=== PATIENT | male | born 1980 | race Caucasian/White ===

== ENCOUNTER 2018-02-25 10:24 | Day surgery (SDC) | payer OTHER ==
[2018-02-17 13:57] VITALS: BMI 26.5
[2018-02-25] MEDS ORDERED: EPINEPHrine 1:1,000 1 MG/1 ML - 30ML VIAL (INJECTION) ONE (10:29)
[2018-02-25] MEDS ORDERED: MIDAZOLAM HCL 2 MG/2 ML SINGLE DOSE VIAL ONE (11:01)
[2018-02-25] MEDS ORDERED: PROPOFOL 20 ML ONE ×2 (11:01)
[2018-02-25] MEDS ORDERED: BUPIVACAINE HCL 0.25% 125 MG/50 ML VIAL ONE (11:34)
[2018-02-25] MEDS ORDERED: ONDANSETRON 4 MG/2 ML VIAL ONE (11:36)
[2018-02-25] MEDS ORDERED: ceFAZolin SODIUM 1 GM VIAL ONE (11:36)
[2018-02-25] MEDS ORDERED: DEXAMETHASONE SOD PHOSPHATE 4 MG/1 ML VIAL ONE (11:36)
[2018-02-25] MEDS ORDERED: KETOROLAC TROMETHAMINE 30 MG/1 ML VIAL ONE (11:36)
[2018-02-25] MEDS ORDERED: LIDOCAINE HCL 2% JELLY (5 ML/TUBE) ONE (11:36)
[2018-02-25] MEDS ORDERED: BUPIVACAINE HCL/PF 0.25% (2.5MG/ML) 10 ML VIAL IJ ONE (12:06)
[2018-02-25] MEDS ORDERED: oxyCODONE HCL 5 MG TABLET PO PRN ×2 (12:16)
[2018-02-25] MEDS ORDERED: ONDANSETRON 4 MG/2 ML VIAL IVPUSH PRN (12:16)
[2018-02-25] MEDS ORDERED: PROMETHAZINE HCL 25 MG/1 ML VIAL IVPUSH PRN (12:16)
[2018-02-25] MEDS ORDERED: MEPERIDINE HCL CARPU-JECT 25 MG/1 ML DISP.SYRIN IVPUSH ONE (12:17)
[2018-02-25] MEDS ORDERED: LACTATED RINGERS SOLUTION 1,000 ML IV SCH (12:30)
--- NOTE | 2018-02-25 13:47 | OP ---
DATE OF OPERATION: 02/25/2018 PREOPERATIVE DIAGNOSIS: Right knee medial meniscus tear. POSTOPERATIVE DIAGNOSIS: Right knee medial meniscus tear. PROCEDURE: Right knee arthroscopy with medial meniscal repair. SURGEON: Terell Pham MD ANESTHESIA: General. POSTOPERATIVE CONDITION: Stable. COMPLICATIONS: None. IMPLANTS: [employer] Fast-Fix 360 x3. BLOOD LOSS: Minimal. INDICATIONS: This is a pleasant 37-year-old male who was having medial knee pain. Treatment options after seeing a meniscus tear noted on MRI were reviewed including doing nothing, physical therapy, injections, and medications. We discussed the option of operative treatment. Given his peripheral, we discussed that a meniscal repair would likely be possible as opposed to meniscal debridement. This will allow us to retain his meniscus tissue which should help prevent developing arthritis in the future. We discussed medical risks such as heart attack, stroke, DVT, PE, and . We discussed surgical risks including bleeding, infection, neurovascular injury, any further surgery, postoperative pain and stiffness, and failure to heal. If the meniscal repair fails to heal, he may need a second surgery for debridement in the upcoming future. We discussed that meniscus repair does not guarantee he will not go on to develop osteoarthritis. The patient voiced understanding and elected to proceed. PROCEDURE: The patient was brought to the operating room where general anesthesia was administ*ered. The right lower extremity was then prepped and draped in the usual sterile fashion. A preoperative general anesthesia was given and the usual time out procedure was performed. Examination of the knee demonstrated a stable ligamentous examination and full range of motion. The portal sites were then marked out. The lateral portal was established using an 11 blade. The arthroscope was passed to the knee. Examination of the patellofemoral joint demonstrated no significant lesions. Passing the arthroscope down to the notch demonstrated an intact ACL and PCL. Passing the arthroscope to the medial compartment, a medial portal was now established. A tear was visualized at the posterior horn of the medial meniscus. The lateral side was now inspected. While there was some partial thickness, cartilage loss, and fraying over the lateral tibia plateau, no unstable lesions were noted. The meniscus was examined and found to be without tear. The arthroscope was now passed back medially. The tear was debrided using the shaver. Utilizing the Fast-Fix 360 device, 2 horizontal mattress sutures were passed in the more medial aspect of the tear and a vertical mattress was passed in the more lateral aspect of the tear. The meniscus was now probed and it was found to be stable. In order to encourage a more favorable healing environment, the lateral femoral notch was debrided of any soft tissue and then multiple passes were made using a microfracture awl to allow extravasation of marrow. Excess fluid was now withdrawn from the knee. The portals were now sutured using 3-0 nylon. The patient was placed into sterile dressings. He was then placed in a knee immobilizer. He was extubated and transferred to the recovery room in stable condition. TERELL PHAM M.D. [id number]
[2018-02-25 15:18] VITALS: BP 124/68; PULSE 90; TEMP 97.9
== END 2018-02-25 14:15 | disposition home or self-care (01) ==
LOC: FASU 10:24
PROVIDERS: ATTEND Orthopaedic Surgery Sports Medicine
PROC: 0SBC4ZZ Excision of Right Knee Joint, Percutaneous Endoscopic Approach (ICD-10-PCS; principal; 2018-02-25 11:34)
DX: S83.241A Other tear of medial meniscus, current injury, right knee, initial encounter (principal); X58.XXXA Exposure to other specified factors, initial encounter; Y93.9 Activity, unspecified; Y92.9 Unspecified place or not applicable

== ENCOUNTER 2018-09-23 07:36 | Day surgery (SDC) | payer OTHER ==
[2018-09-14 09:59] VITALS: BMI 26.5
[2018-09-23] MEDS ORDERED: fentaNYL CITRATE 250 MCG/5 ML VIAL ONE (09:18)
[2018-09-23] MEDS ORDERED: PROPOFOL 20 ML ONE ×2 (09:18)
[2018-09-23] MEDS ORDERED: MIDAZOLAM HCL 2 MG/2 ML SINGLE DOSE VIAL ONE (09:19)
[2018-09-23] MEDS ORDERED: DEXAMETHASONE SOD PHOSPHATE 4 MG/1 ML VIAL ONE (10:10)
[2018-09-23] MEDS ORDERED: ceFAZolin SODIUM 1 GM VIAL ONE (10:10)
[2018-09-23] MEDS ORDERED: ONDANSETRON 4 MG/2 ML VIAL ONE (10:10)
[2018-09-23] MEDS ORDERED: BUPIVACAINE HCL/EPINEPHRINE/PF 30 ML VIAL IJ ONE (10:15)
[2018-09-23] MEDS ORDERED: BUPIVACAINE 0.25% /EPI 1:200,000 10 ML VIAL INF ONE (10:44)
[2018-09-23] MEDS ORDERED: MEPERIDINE HCL 50 MG/ML VIAL ONE (11:01)
[2018-09-23] MEDS ORDERED: oxyCODONE HCL 5 MG TABLET PO PRN (11:06)
[2018-09-23] MEDS ORDERED: ONDANSETRON 4 MG/2 ML VIAL IVPUSH PRN (11:06)
[2018-09-23] MEDS ORDERED: LACTATED RINGERS SOLUTION 1,000 ML IV SCH (11:15)
--- NOTE | 2018-09-23 11:27 | OP ---
DATE OF OPERATION: DATE OF DICTATION: 09/23/2018 PREOPERATIVE DIAGNOSES: Painful right knee hardware and ganglion cyst of knee. POSTOPERATIVE DIAGNOSES: Painful right knee hardware and ganglion cyst of knee. PROCEDURE: Right knee excision of deep implant and excision of periarticular ganglion cyst. SURGEON: Terell Pham MD FIELD COURT RESEARCHER: BESSIE Moreno, whose skillful assistance was necessary for the safe and timely performance of this procedure. Mr. Castle was able to help provide limb positioning, retraction, assist in the removal of the orthopedic hardware. ANESTHESIA: General. POSTOPERATIVE CONDITION: Stable. COMPLICATIONS: None. SPECIMENS: Removed implant x1 and ganglion cyst lining x1. INDICATIONS: This is a pleasant gentleman who underwent medial meniscal repair. He developed pain and swelling medially after the procedure. An MRI demonstrated cystic structure as well as ultrasound about the anchor. Given these findings, treatment options were reviewed including nonoperative care with cyst aspiration and observation versus operative care with removal of the implant and excision of the cyst. Surgical risks were reviewed in detail including bleeding, infection, neurovascular injury, need for further surgery, postoperative pain and stiffness, recurrence of the cyst, persistent pain after removal of the implant. We discussed medical risks such as heart attack, stroke, DVT, PE and . I addressed all the patient's questions and concerns. He voiced understanding and elected to proceed. PROCEDURE: Patient was brought to the operating room where general anesthesia was administered. The right lower extremity was then prepped and draped in the usual sterile fashion. A preoperative dose of antibiotics was given and the usual timeout procedure was performed. The cystic structure was palpable and an incision was marked out over this. The incision was then carried down through skin, through subcutaneous tissue. Blunt spreading was used to expose the fascia over the knee. The fascia was then split in line with its fibers. Dissection was now carried down to the area of the capsule where the cyst was identified. It was dissected carefully from the surrounding tissues. The cyst was then opened at its base adjacent to the capsule. After doing this, the implant was identified. The suture was cut and then the implant was removed. The capsule was opened a bit in order to try to identify the other end of the implant. However, only the 1 was identified. The cyst lining was now excised. Capsule was then closed using 3-0 nylon figure-of-8 sutures. The fascia was closed using 3-0 nylon suture. Subcutaneous tissue was approximated using 3-0 nylon suture. The skin was closed using 3-0 nylon. The tourniquet was used during this case, inflated at the beginning and deflated after half an hour. Patient was placed in sterile dressings, extubated and transferred to the recovery room in stable condition. Prior to placing the dressings, the area about the wound was injected with 0.25% Marcaine with epinephrine to provide postoperative analgesia. TERELL PHAM M.D. [id number]
[2018-09-23 11:53] VITALS: TEMP 98.4
[2018-09-23 12:16] VITALS: BP 108/75; PULSE 76
[2018-09-23] MEDS ORDERED: MEPERIDINE HCL 50 MG/ML VIAL IVPUSH ONE (13:00)
--- NOTE | 2018-10-01 13:36 | PATH ---
Surgical Pathology Report Patient Name: GONZALO LEVINE Med. Rec. #: [id number] /Age/Gender: 1980 (Age: 38) / M Account: [id number] Location: [facility] Taken: 09/23/2018 Received: 09/23/2018 Reported: 10/01/2018 Physicians: Terell Paiz M.D. Specimen(s) Received A: EXPLANTED ANCHOR RIGHT KNEE B: CYST RIGHT KNEE Clinical History Painful implant/cyst right knee Final Diagnosis A. EXPLANTED ANKLE RIGHT KNEE: HARDWARE, DESCRIBED (GROSS EXAMINATION ONLY). B. CYST, RIGHT KNEE, EXCISION: GANGLION CYST. Electronically Signed Brenda Aviles M.D. Gross Description A. Received fresh labeled "explanted anchor right knee," is a 0.4 x 0.1 x 0.1 cm portion of perea, plastic material, consistent with explanted hardware. No soft tissue is present. No sections are submitted, gross only. B. Received in formalin labeled "cyst right knee," is a 1.2 x 1.0 x 0.5 cm perea-yellow portion of soft tissue possibly consistent with a cyst. The specimen is bisected and entirely submitted in one cassette. 09/24/2018 saudi09/24/2018
== END 2018-09-23 12:15 | disposition home or self-care (01) ==
LOC: FASU 07:36
PROVIDERS: ATTEND Orthopaedic Surgery Sports Medicine
PROC: 0SPC04Z Removal of Internal Fixation Device from Right Knee Joint, Open Approach (ICD-10-PCS; 2018-09-23)
PROC: 0SBC0ZZ Excision of Right Knee Joint, Open Approach (ICD-10-PCS; principal; 2018-09-23 09:45)
DX: T84.84XA Pain due to internal orthopedic prosthetic devices, implants and grafts, initial encounter (principal); M67.461 Ganglion, right knee; Y83.8 Other surgical procedures as the cause of abnormal reaction of the patient, or of later complication, without mention of misadventure at the time of the procedure; Y79.3 Surgical instruments, materials and orthopedic devices (including sutures) associated with adverse incidents; Y92.9 Unspecified place or not applicable
CPT/HCPCS: 88300-TC; 88304-TC; 94760; J2175